=== PATIENT | male | born 1940 | race Caucasian/White ===

== ENCOUNTER 2016-09-12 10:15 | Emergency (ER) | payer MEDICARE, OTHER ==
[~2016-09-12] VITALS: Ht 180.3 cm; Wt 99.1 kg
[2016-09-12 10:18] VITALS: BP 171/87; PULSE 63; RESP 17; O2SAT 98
--- NOTE | 2016-09-12 11:06 | ED.REPORT ---
HPI-General Illness Date of Service Sep 12, 2016 ED Provider: Brien Hernández MD Pt is a 76 y/o male w/ a hx of HTN, NIDDM, presenting to the ED c/o low back pain onset 2-3 weeks ago, worse recently. The patient returned here from [place] and 2-3 days afterwards he began experiencing chills, and diaphoresis. Pt denies nausea, vomiting, urinary frequency/urgency, dysuria, fever, cough, SOB, rash, decreased appetite. There have been no recent antibiotic therapies. His pain is not exacerbated or relieved by anything and is non-radiating. There is no history of nephrolithiasis or pyelonephritis. Nursing Notes Stated Complaint: CHILLS,BACK ACHE Chief Complaint: General Complaint Nursing Notes Reviewed: Yes (GI-View not reconciled) Allergies: Coded Allergies: No Known Allergies (Unverified , 09/12/16) Scheduled Ciprofloxacin (Ciprofloxacin) 500 Mg Tablet 500 MG PO BID General Time Seen by MD: 10:43 Chief Complaint Back pain Hx Obtained From: Patient Arrived By: Walk-in Sudden in Onset?: No Onset Occurred: 1 week ago Symptom Duration: Since onset Location: : Back Quality: Painful Radiation: : Does not radiate Severity: Current: Mild Severity: Maximum: Moderate Recent Healthcare: No recent doctor visit, No recent hospitalization Similar Sx Previous: No Past Medical History Past Medical History Hypertension NIDDM Past Surgical History Bilateral partial knee repair Prostatectomy Smoking History Never Smoker Social History Alcohol Use: 1-3 per day Drug Use: Denies drug use Ambulatory Status Independent Review of Systems Full Review of Systems Constitutional: Reports: Chills, Denies: Fever Respiratory: Denies: Non-productive cough, Shortness of breath Cardiovascular: Denies: Chest pain, Dyspnea on exertion GI: Denies: Abdominal pain, Nausea, Vomiting Male: Denies Dysuria, Denies Urinary frequency, Denies Urinary urgency Musculoskeletal: Reports: Lumbar pain Neurologic: Denies: Bladder dysfunction, Bowel dysfunction, Numbness, Weakness Complete sys rev & neg: except as marked. Physical Exam Vital Signs Vital Signs Date Time Temp Pulse Resp B/P Pulse Ox O2 Delivery O2 Flow Rate FiO2 09/12/16 13:59 36.7 55 20 160/72 97 Room Air 09/12/16 13:07 36.7 55 20 160/72 97 Room Air 09/12/16 10:18 36.9 63 17 171/87 98 Room Air Initial VS: Reviewed, Vital signs abnormal (HTN, patient states chronic) Head / Eyes: Atraumatic, Normocephalic, PERRL ENT: Mucous membranes moist, Conjunctiva normal, No scleral icterus Neck: Supple, Full range of motion Respiratory: Breath sounds normal, Clear to auscultation, No respiratory distress Cardiovascular: Regular rate & rhythm, Heart sounds normal, Intact distal pulses Abdomen / GI: Soft, Non-tender, No guarding, No rebound, No distention Extremities: Vascular intact, Neuro intact, No swelling Skin: Warm, Dry, No cyanosis Neurologic: Alert, Oriented, Nonfocal Psychiatric: Mood/affect normal, Behavior normal, Normal thought content General/Constitutional: Awake, Alert, No acute distress, Well appearing, Cooperative, Not toxic appearing Back: Full range of motion, Painless range of motion, No CVA tenderness Interpretation & Diagnostics Interpretation & Diagnostics: CT KUB: IMPRESSION: 1. No renal stone hydronephrosis. 2. Mild bilateral perinephric stranding. 3. Cholelithiasis. No CT evidence for acute cholecystitis. 4. Diverticulosis without evidence for acute diverticulitis. 5. Small hiatal hernia. 6. Mild infrarenal abdominal aortic aneurysm measuring 3.2 cm in diameter. Dictated by: Cecilia Mcrae M.D. on 09/12/2016 at 11:51 Approved by: Cecilia Mcrae M.D. on 09/12/2016 at 11:57 Lab Results Interpretation Result Diagram: 09/12/16 1137 09/12/16 1137 Test 09/12/16 11:37 09/12/16 11:48 White Blood Count 7.5th/mm3 (3.8-10.1) Red Blood Count 4.33mil/mm3 (4.40-5.80) Hemoglobin 13.3g/dL (13.8-17.2) Hematocrit 38.7% (41.0-50.0) Mean Corpuscular Volume 89.4fL (81-100) Mean Corpuscular Hemoglobin 30.7pg (27.0-35.0) Mean Corpuscular Hemoglobin Concent 34.4% (32.0-37.0) Red Cell Distribution Width 14.7% (12.3-15.4) Platelet Count 198bil/L (150-400) Neutrophils (%) (Auto) 51.0% (40-74) Lymphocytes (%) (Auto) 22.0% (14-46) Monocytes (%) (Auto) 17.4% (4-12) Eosinophils (%) (Auto) 6.4% (0-5) Basophils (%) (Auto) 2.7% (0-3) Sodium Level 137mEq/L (134-144) Potassium Level 4.6mEq/L (3.5-5.2) Chloride Level 99mEq/L (97-108) Carbon Dioxide Level 22mmol/L (18-29) Blood Urea Nitrogen 23mg/dL (8-27) Creatinine 1.05mg/dL (0.76-1.27) Estimat Glomerular Filtration Rate 73mL/min (>59) Glucose Level 125mg/dL (60-99) Lactic Acid Level 1.7mmol/L (0.4-2.0) Calcium Level 9.6mg/dL (8.5-10.1) Total Bilirubin 0.6mg/dL (0.0-1.2) Aspartate Amino Transf (AST/SGOT) 14U/L (0-50) Alanine Aminotransferase (ALT/SGPT) 13U/L (0-44) Alkaline Phosphatase 65U/L (25-160) Total Protein 7.2g/dL (6.4-8.4) Albumin 4.0g/dL (3.4-5.0) Urine Color Yellow (YELLOW) Urine Appearance Clear (CLEAR,HAZY) Urine pH 5.0 (5.0-8.0) Urine Specific [place] 1.019 (1.003-1.035) Urine Protein Negativemg/dL (NEG,TRACE) Urine Glucose (UA) Negativemg/dL (NEGATIVE) Urine Ketones Negativemg/dL (NEGATIVE) Urine Occult Blood Negative (NEGATIVE) Urine Nitrite Negative (NEGATIVE) Urine Bilirubin Negative (NEGATIVE) Urine Urobilinogen Normalmg/dL (NORMAL) Urine Leukocyte Esterase Negative (NEGATIVE) Urine RBC 0-2/hpf (0-2) Urine WBC 0-5/hpf (0-5) Urine Epithelial Cells Few/hpf (NONE-MOD) Urine Crystals None seen (NONE SEEN) Urine Bacteria None/hpf (NONE-FEW) Urine Hyaline Casts None/lpf (NONE) Urine Granular Casts None seen (NONE SEEN) Urine Waxy Casts None seen (NONE SEEN) Urine Red Blood Cell Casts None seen (NONE SEEN) Urine White Blood Cell Casts None seen (NONE SEEN) Urine Mucus None seen (None Seen) Urine Trichomonas None seen (NONE SEEN) Urine Yeast None (NONE SEEN) Urinalysis Comment None Urine Culture Reflexed Not indicated Lab Results Interpretation: CBC normal CMP normal Lactic acid normal next and blood cultures 2 pending UA negative X-Ray Chest Interpretation Chest Xray Interpretation: IMPRESSION: No acute cardiopulmonary disease. Dictated by: Cecilia Mcrae M.D. on 09/12/2016 at 11:11 Approved by: Cecilia Mcrae M.D. on 09/12/2016 at 11:12 View: Portable, 1 view Interpretation / Wet Read by: Interpret - Radiologist Re-Eval/Medical Decision Med Decision/Clinical Course This is a pleasant 76-year-old male who presents complaining of a sense of chills, possible fever, and some mild lateral flank pain. It is bilateral, but slightly worse on the left, and not severe enough to require any medicine. However he just reports that he just did not feel right, and with the chills that developed yesterday as worried about a developing infection and came in a checked out. He has no history recent infections, denies cough or shortness of breath, denies overt dysuria, denies cellulitis, and has no additional complaints. He denies prior history of stones. On exam, he is not currently febrile, he is energetic, well-appearing, alert and appropriate. He does not appear toxic or ill. He has no midline spine tenderness, no risk factors or clinical features or neurologic symptoms indicate or suggest epidural abscess. He has trace CVA tenderness, no guarding , no rebound, the abdomen soft and nontender. He has no signs of trauma, no signs of cellulitis. Overall symptoms are concerning for an infectious etiology, and lab work was obtained. Blood and urine were normal-cultures are pending. Given the combination of flank pain, and infectious type symptoms, CT KUB was obtained, along no stones were identified some perinephric stranding was noted. Interestingly, given the patient's urine is overtly negative-given this combination of symptoms are getting the possible kidney involvement, given perinephric stranding, and a strong suspicious for infectious etiology, I am initiating empiric antibiotics. After cultures were drawn the patient received an IV dose of ceftriaxone. Although he is 76, his vigorous, appears well- appearing, comfortable going home and I think is a reasonable For outpatient antibiotics, and the patient agrees. He does not have a local PCP so was given a referral for follow-up. Starts in a 10 day course of Cipro. Routine precautions, return precautions reviewed. Source of Hx: Old records Time of Eval: 12:46 Patient Status: Condition improved, Moderate relief Re-Evaluation/Progress Note: Pt rechecked. Feeling better. Discussed imaging results and need for IV abx in the ED. Differential Diagnosis: Negative: Abdominal pain, Acute coronary syndrome, Allergies, Bronchitis, acute, Cellulitis, Diabetes mellitus, G-tube repair/ replacement, Laceration, Malingering, Syncope Counseled Regarding: Diagnosis, Lab results, Need for follow-up, When/why to return to ED Discharge & Departure Primary Impression: Pyelonephritis Disposition: Home Discharge Condition All VS Reviewed: Yes Condition: Stable Additional Instructions: 1. Your symptoms and back pain are indeed concerning for an infection-and her CT scan does suggest some perinephric stranding is often indicative of an infection. Your initial blood in urine test however were normal-however we have sent a "blood cultures" that take a few days for final results. We will call you if the cultures are abnormal, and you can call us [phone] at any time for an update on results. 2. You received an injection of the antibiotic ceftriaxone. 3. Take the antibiotic ciprofloxacin 500mg twice a day (starting this evening) for 10 days. 4. Continue tylenol - you can safely take 1000mg up to three times a day for discomfort. 5. Symptoms are expected to be improving in about 2 days after starting antibiotics. 6. Return to the emergency department if new, worsening or uncontrolled symptoms occur. 7. We have referred you to Dr. Bird's office for follow up. Call tomorrow , and when you call tell them you were seen in the emergency department and do need follow-up. If you have any difficulty obtaining a follow-up, please call us at [phone]. Referrals: Zacarias Bird MDibkunal Attestation Portions of this note were transcribed by Marek Bone. I, Dr. Hernández personally performed the history, physical exam and medical decision-making; I reviewed and confirmed the accuracy of the information in the transcribed note. Signed by Rosa Maria Dow, 09/12/16 - 1115 copies to: Zacarias Bird MD, Matthew F MD Sep 12, 2016 11:06 MAREK BONE Sep 12, 2016 11:10
--- NOTE | 2016-09-12 11:14 | DRSVH ---
PROCEDURE: X-RAY CHEST ONE VIEW, PORTABLE ([id number]) INDICATIONS: 76 year-old man with fever, chills. TECHNIQUE: One view of the chest was acquired. COMPARISON: None. FINDINGS: Surgical changes and devices: None. Lungs and pleura: No pleural effusions or pneumothorax. Lungs are clear. Mediastinum: Mediastinal contours appear normal. Heart size is normal. Bones and chest wall: No suspicious bony lesions. Overlying soft tissues appear unremarkable. IMPRESSION: No acute cardiopulmonary disease. Dictated by: Cecilia Mcrae M.D. on 09/12/2016 at 11:11 Approved by: Cecilia Mcrae M.D. on 09/12/2016 at 11:12
[2016-09-12 11:41] LABS: BASOPHILS % (AUTO) 2.7 % (0-3); EOSINOPHILS % (AUTO) 6.4 % (0-5); MONOCYTES % (AUTO) 17.4 % (4-12); Mean Corpuscular Hemoglobin 30.7 pg (27.0-35.0); Mean Corpuscular Volume 89.4 fL (81-100); Platelet Count 198 bil/L (150-400)
--- NOTE | 2016-09-12 11:58 | DRSVH ---
PROCEDURE: CT KUB ([id number]) INDICATIONS: 76 year-old man with flank pain, ? fever. TECHNIQUE: Noncontrast 5 mm thick sections acquired from the diaphragms to the symphysis. 5 mm thick coronal an d sagittal reformats were then performed. For radiation dose reduction, the following was used: aut omated exposure control, adjustment of mA and/or kV according to patient size. COMPARISON: [facility], CR, XR CHEST 1VW (PORTABLE), 09/12/2016, 10:42. FINDINGS: Image quality: Excellent. Lung bases: Lung bases are clear. Heart size is mildly increased. There is a small hiatal hernia. Urinary system: Both kidneys are normal in size. No kidney stones or hydronephrosis. There is bilat eral perinephric fat stranding. There is a 1.6 cm low density nodule in the upper pole of the left k idney, probably a cyst. Both ureters appear non-dilated throughout their expected courses. Bladder i s semicontracted. Bladder wall thickness is normal; no calcified bladder stones. Other solid organs: Liver and spleen are normal in size. Gallbladder contains calcified gallstones. Pancreas is normal in contours. No adrenal nodules. Peritoneum and bowel: Unenhanced bowel loops demonstrate normal wall thickness and caliber. There a re scattered colonic diverticula. No evidence for active diverticulitis. No free fluid or air. Nodes and vessels: No retroperitoneal or mesenteric adenopathy by size criteria. Aorta and inferior vena cava are normal in caliber. Mild infrarenal abdominal aortic aneurysm measuring 3.2 cm in diam eter. Moderate atherosclerosis. Abdominal wall: Small fat-containing umbilical hernia is noted. Pelvis: No free pelvic fluid. No inguinal hernias or adenopathy. Bones: No suspicious bony lesions. No vertebral body compression fractures. There are degenerative changes in lumbar spine. IMPRESSION: 1. No renal stone hydronephrosis. 2. Mild bilateral perinephric stranding. 3. Cholelithiasis. No CT evidence for acute cholecystitis. 4. Diverticulosis without evidence for acute diverticulitis. 5. Small hiatal hernia. 6. Mild infrarenal abdominal aortic aneurysm measuring 3.2 cm in diameter. Dictated by: Cecilia Mcrae M.D. on 09/12/2016 at 11:51 Approved by: Cecilia Mcrae M.D. on 09/12/2016 at 11:57
[2016-09-12] MEDS ORDERED: cefTRIAXone Inj 2,000 MG in Dextrose 5% Minibag Plus 50 ML IV ONE (12:15)
[2016-09-12 12:23] LABS: APPEARANCE,URINE CLEAR (CLEAR,HAZY); COLOR,URINE YELLOW (YELLOW); OCCULT BLOOD,URINE NEGATIVE (NEGATIVE); UROBILINOGEN,URINE NORMAL (NORMAL)
[2016-09-12] MEDS ORDERED: CIPR-198 PO (12:55)
[2016-09-12 13:07] VITALS: BP 160/72; PULSE 55; RESP 20; O2SAT 97
[2016-09-12 13:59] VITALS: BP 160/72; PULSE 55; RESP 20; O2SAT 97
== END 2016-09-12 13:59 | disposition home or self-care (01) ==
LOC: SED 10:15
DX: N12 Tubulo-interstitial nephritis, not specified as acute or chronic (principal); I10 Essential (primary) hypertension; E11.9 Type 2 diabetes mellitus without complications; Z90.79 Acquired absence of other genital organ(s); Z85.46 Personal history of malignant neoplasm of prostate; Z79.84 Long term (current) use of oral hypoglycemic drugs
CPT/HCPCS: 36415; 71010; 74176; 80053; 81000; 83605; 85025; 87040; 87086; 96365; 99285; J0696

== ENCOUNTER 2016-09-17 10:07 | Emergency (ER) | payer MEDICARE, OTHER ==
[~2016-09-17] VITALS: Ht 180.3 cm; Wt 97.7 kg
[~2016-09-17 10:07] MED LIST: CIPR-198 PO
[2016-09-17 10:24] VITALS: BP 141/75; PULSE 54; RESP 15; O2SAT 97
--- NOTE | 2016-09-17 10:27 | ED.REPORT ---
HPI-General Illness Date of Service Sep 17, 2016 ED Provider: Jose Cintron MD The patient is a 76 year old male with history of NIDDM and hypertension, who presents to the emergency department requesting a medication refill. The patient was seen here on the and diagnosed with pyelonephritis and sent home with a prescription for 10 days of ciprofloxacin. He is about to run out of the antibiotic but is going to be 4 pills short. At this time his only complaints are chills and shakes. He denies fever, abdominal pain, nausea, vomiting, diarrhea, flank pain, back pain or dysuria. He has an appointment at [facility] on October 02. Nursing Notes Stated Complaint: MEDICATIONS Chief Complaint: Wound Recheck/Suture Removal Nursing Notes Reviewed: Yes Allergies: Coded Allergies: No Known Allergies (Unverified , 09/12/16) Scheduled Ciprofloxacin (Ciprofloxacin) 500 Mg Tablet 500 MG PO BID Ciprofloxacin (Cipro) 500 Mg Tablet 500 MG PO BID General Time Seen by MD: 10:25 Chief Complaint Medication refill Hx Obtained From: Patient Arrived By: Walk-in Onset Occurred: 6 days ago Symptom Duration: Since onset Severity: Current: No pain currently Severity: Maximum: No pain Recent Healthcare: No recent hospitalization, Recent doctor visit Similar Sx Previous: Yes Past Medical History Past Medical History Hypertension NIDDM Past Surgical History Bilateral partial knee repair Prostatectomy Family History Noncontributory Smoking History Never Smoker Social History Alcohol Use: 1-3 per day Drug Use: Denies drug use Other Social History: Local resident Ambulatory Status Independent Review of Systems Full Review of Systems Constitutional: Reports: Chills (and shakes), Denies: Fever GI: Denies: Abdominal pain, Diarrhea, Nausea, Vomiting Male: Denies Dysuria, Denies Flank pain Musculoskeletal: Denies: Back pain Complete sys rev & neg: except as marked. Physical Exam Vital Signs Vital Signs Date Time Temp Pulse Resp B/P Pulse Ox O2 Delivery O2 Flow Rate FiO2 09/17/16 11:08 36.1 54 15 141/75 97 Room Air 09/17/16 10:24 36.1 54 15 141/75 97 Room Air Initial VS: Reviewed Head / Eyes: Atraumatic, Normocephalic, PERRL ENT: Mucous membranes moist, Conjunctiva normal, No scleral icterus Neck: Supple, Non-tender, Full range of motion Respiratory: Breath sounds normal, Clear to auscultation, No respiratory distress Cardiovascular: Regular rate & rhythm, Heart sounds normal, Intact distal pulses Abdomen / GI: Soft, Non-tender, No guarding, No rebound, No distention Lymphatic: No lymphadenopathy Extremities: Vascular intact, Neuro intact, No swelling, No tenderness Skin: Warm, Dry, No cyanosis Neurologic: Alert, Oriented, Nonfocal Psychiatric: Mood/affect normal, Behavior normal, Normal thought content General/Constitutional: Awake, Alert, No acute distress, Well appearing Back: No CVA tenderness Re-Eval/Medical Decision Med Decision/Clinical Course 76-year-old male diagnosed with pyelonephritis 5 days ago returning for reevaluation. He reports all of his symptoms have resolved other than mild chills. Denies any fevers, back pain, dysuria, abdominal pain, cough, diarrhea, any other symptoms. He has enough antibiotics to last him several more days but reports he lost 4 pills and therefore I will be unable to complete the course. He has follow-up on September 22. His vital signs are stable here. His exam is completely benign. I will replace his additional 4 pills of ciprofloxacin. He will complete his course of antibiotics. Return precautions given. Source of Hx: Old records Time of Eval: 10:55 Re-Evaluation/Progress Note: Discussed plan for discharge. All questions were addressed. Counseled Regarding: Diagnosis, Need for follow-up, When/why to return to ED Discharge & Departure Primary Impression: Pyelonephritis Disposition: Home Discharge Condition All VS Reviewed: Yes Condition: Stable Additional Instructions: Thank you for entrusting us with your care today. I have written you a prescription for 4 additional pills of the antibiotic you are currently taking. Keep your appointment with Bruno in September. Return to the emergency department if you develop fever, vomiting, pain, or any other new or concerning symptoms. Referrals: Zacarias Bird MD (PCP) Scribkunal Attestation Portions of this note were transcribed by Kelsi Keyes. I, Dr. Cintron personally performed the history, physical exam and medical decision-making; I reviewed and confirmed the accuracy of the information in the transcribed note. Signed by: Rosa Maria Duron, 09/17/2016 at 1110. copies to: Zacarias Bird MD, Ben M MD Sep 17, 2016 10:27 Kelsi Keyes Sep 17, 2016 10:57
[2016-09-17] MEDS ORDERED: CIPR-231 PO (11:00)
[2016-09-17 11:08] VITALS: BP 141/75; PULSE 54; RESP 15; O2SAT 97
== END 2016-09-17 11:08 | disposition home or self-care (01) ==
LOC: SED 10:07
DX: N10 Acute pyelonephritis (principal); I10 Essential (primary) hypertension; E11.9 Type 2 diabetes mellitus without complications